=== PATIENT | female | born 1940 | race Caucasian/White ===

== ENCOUNTER 2020-10-18 03:12 | Inpatient (IN) ==
--- NOTE | 2020-10-18 04:52 | Emergency Department Note ---
HPI General Chief complaint: Extremity Problem,Nontraumatic Stated complaint: chest pain Time Seen by Provider: 10/18/20 03:27 Source: patient and EMS Mode of arrival: EMS History of Present Illness HPI Narrative: Narrative: Presents to room T2 for evaluation of cough, congestion, chills and right scapular pain. The patient is accompanied by her daughter. She reports that she went to bed and had no significant symptoms. She woke up prior to arrival with shaking chills cough and difficulty breathing. In addition the patient reports pain primarily along the right scapular region. This pain is made worse with any type of movement. There is no fever or night sweats. There is no sputum production. No chest pain. There is some nausea but no vomiting. No reported lower extremity swelling or calf pain. Related Data Home Medications Medication Instructions Recorded Confirmed amiodarone 200 mg PO DAILY 06/03/20 10/18/20 apixaban [Eliquis] 2.5 mg PO BID 06/03/20 10/18/20 hydralazine 50 mg PO BID 06/03/20 10/18/20 metoclopramide HCl [Reglan] 5 mg PO TID 06/03/20 06/08/20 metoclopramide HCl [Reglan] 5 mg PO TID 06/03/20 06/08/20 sitagliptin-metformin [Janumet XR] 1,000 tab PO HS 06/03/20 10/18/20 telmisartan [Micardis] 20 mg PO QDAY 06/03/20 10/18/20 Advair Diskus 250 device INHALATION BID 10/18/20 10/18/20 azelastine 10/18/20 clopidogrel [Plavix] 75 mg PO DAILY 10/18/20 10/18/20 pantoprazole [Protonix] 20 mg PO DAILY 10/18/20 10/18/20 Previous Rx's Medication Instructions Recorded sulfamethoxazole-trimethoprim 1 tab PO BID #20 tab 06/03/20 [Bactrim DS] sulfamethoxazole-trimethoprim 1 tab PO Q12H #20 tab 06/04/20 [Bactrim DS] Allergies Allergy/AdvReac Type Severity Reaction Status Date / Time Beclomethasone Allergy Verified 10/18/20 03:32 [From Vancenase] celecoxib [From Celebrex] Allergy Verified 10/18/20 03:32 diphenhydramine Allergy Verified 10/18/20 03:32 [From Benadryl] lidocaine Allergy Verified 10/18/20 03:32 lisinopril Allergy Verified 10/18/20 03:32 simvastatin [From Zocor] Allergy Verified 10/18/20 03:32 acetaminophen [From Percocet] AdvReac Verified 10/18/20 03:32 citalopram AdvReac Verified 10/18/20 03:32 codeine AdvReac Verified 10/18/20 03:32 hydrocortisone AdvReac Verified 10/18/20 03:32 meperidine [From Demerol] AdvReac Verified 10/18/20 03:32 oxycodone [From Percocet] AdvReac Verified 10/18/20 03:32 propoxyphene AdvReac Verified 10/18/20 03:32 [From Darvocet-N] tavist d Allergy Uncoded 06/03/20 09:29 Review of Systems ROS ROS Narrative: Narrative: All systems ED: reviewed and negative except as stated. [facility] Narrative Patient History Narrative: Narrative: Medical/Surgical/Family History All Active Problems (Updated 10/18/20 @ 06:48 by Roc Watson MD) Cellulitis of hand, left (Acute) Abscess of hand, left (Acute) Weakness generalized (Acute) Hyponatremia (Acute) Tremor (Acute) Pneumonia (Acute) Acute UTI (Acute) Suprapubic catheter (Acute) Chronic pain (Acute) Type 2 diabetes mellitus (Acute) Atrial fibrillation (Acute) Hypertension (Acute) Cellulitis (Acute) Medical History (Updated 10/18/20 @ 06:48 by Roc Watson MD) History of sepsis Social History Smoking Status: Never smoker Alcohol Intake Frequency: does not drink Substance Use: does not use Exam Narrative Narrative: Narrative: General General appearance: Present alert and in no apparent distress Head Head: Present atraumatic, normocephalic and normal inspection Eye Eye: Present normal appearance and EOMI; Absent conjunctival injection ENT ENT: Present normal exam and mucous membranes moist Neck Neck: Present normal inspection and trachea midline Respiratory Respiratory: Present normal lung sounds bilaterally; Absent respiratory distress Cardiovascular Cardiovascular: Present regular rate, normal rhythm and normal heart sounds Adbominal Abdominal: Present soft; Absent distention, tenderness, guarding and rebound Extremities Extremities: Present normal inspection; Absent tenderness Back Back: Present normal inspection, tenderness (There is tenderness palpation primarily along the paraspinal musculature of the medial border of the right scapula.), muscle spasm and paraspinal tenderness Neurological Neurological: Present alert, oriented X3 and CN II-XII intact; Absent motor sensory deficit Psychiatric Psychiatric: Present normal affect and normal mood Skin Skin: Present warm (WNL) and dry; Absent rash Course Vital Signs Vital signs: Vital Signs Temperature 99.7 F H 10/18/20 03:13 Pulse Rate 65 10/18/20 03:13 Respiratory Rate 25 H 10/18/20 03:13 Blood Pressure 159/54 10/18/20 03:13 Pulse Oximetry (%) 95 10/18/20 03:13 Temperature 99.7 F H 10/18/20 03:13 Pulse Rate 58 L 10/18/20 06:31 Respiratory Rate 25 H 10/18/20 06:31 Blood Pressure 143/50 10/18/20 06:31 Pulse Oximetry (%) 96 10/18/20 06:31 [facility] MDM Narrative Medical decision making narrative: Narrative: Patient presents for evaluation of cough congestion and chills. The patient's chest x-ray does show patchy infiltrates. This may represent pneumonia versus atelectasis. The patient has had some brief episodes of hypoxia while in the emergency department and I tend to lean more towards a pneumonia diagnosis clinically. The patient also has an indwelling suprapubic catheter. The urinalysis is consistent with UTI. The patient's sodium is 122 and this represents a progression of her hyponatremia. The patient's daughter does report that the patient has had previous diagnostic studies to evaluate for SIADH in [place] but does not have further details regarding this. The patient had episode of shaking while in the emergency department. She was awake during this time and I do not believe this represents seizure or seizure-like activity but rather more likely chills. The patient was treated with Tylenol and the symptoms did significantly improve. The patient has been treated with IV antibiotics after blood cultures. I also initiated normal saline and attempt to correct her hyponatremia. The patient will benefit from admission. The hospitalist has been paged. Lab Data Lab results reviewed: Yes I reviewed the patient's lab results. Result diagrams: 10/18/20 04:27 10/18/20 04:27 Labs: Lab Results 10/18/20 10/18/20 10/18/20 Range/Units 04:27 04:27 04:27 WBC 6.5 (4.5-11.0) K/mcL RBC 3.85 L (4.00-5.20) M/mcL Hgb 10.6 L (12.0-15.0) g/dL Hct 31.5 L (36.0-48.0) % MCV 81.8 (80.0-100.0) fL MCH 27.5 (26.0-34.0) pg MCHC 33.7 (31.0-36.0) g/dL RDW 15.1 H (11.5-14.5) % Plt Count 268 (140-440) K/mcL MPV 8.9 (7.4-10.4) fL Neut % (Auto) 90.7 H (38.0-78.0) % Lymph % (Auto) 4.5 L (15.0-49.0) % [place] % (Auto) 4.0 (1.0-12.0) % Eos % (Auto) 0.3 (0.0-7.0) % Baso % (Auto) 0.5 (0.0-2.0) % Lymph # (Auto) 0.29 L (1.50-4.80) K/mcL [place] # (Auto) 0.26 (0.10-0.90) K/mcL Eos # (Auto) 0.02 (0.00-0.70) K/mcL Baso # (Auto) 0.03 (0.00-0.20) K/mcL Absolute Neutrophils 5.85 (1.80-8.00) K/mcL VBG Lactic Acid 1.1 (0.5-2.0) mmol/L Sodium 122 L (133-145) mmol/L Potassium 3.8 (3.3-5.1) mmol/L Chloride 92 L (96-108) mmol/L Carbon Dioxide 21 L (22-30) mmol/L Anion Gap 9.0 (8.0-16.0) BUN 8 (8-23) mg/dL Creatinine 0.7 (0.6-1.1) mg/dL GFR Calculation 81 Glucose 208 H (70-105) mg/dL Calcium 8.6 (8.6-10.4) mg/dL Total Bilirubin 0.6 (0.1-1.0) mg/dL AST 20 (<32) U/L ALT 17 (<40) U/L Alkaline Phosphatase 66 (39-117) U/L Troponin T (<0.03) ng/mL Total Protein 6.1 (5.9-8.4) gm/dL Albumin 3.7 (3.2-5.2) gm/dL Globulin 2.4 (2.2-3.7) gm/dL Albumin/Globulin Ratio 1.5 (1.0-2.3) Lipase 31 (7-60) U/L Urine Color Urine Appearance (Clear) Urine pH (5.0-9.0) Ur Specific [place] (1.000-1.035) Urine Protein (Negative) mg/dL Urine Glucose (UA) (Negative) mg/dL Urine Ketones (Negative) mg/dL Urine Occult Blood (Negative) marisel/mcL Urine Nitrate (Negative) Urine Bilirubin (Negative) mg/dL Urine Urobilinogen mg/dL Ur Leukocyte Esterase (Negative) /ug Urine RBC (0-3) /hpf Urine WBC (0-4) /hpf Ur Squamous Epith Cells (0-4) /hpf Triple Phos Crystals (None) /hpf Amorphous Crystals (None) /hpf Urine Bacteria (0) /hpf Urine Mucus (None) /hpf Ur Culture Indicated? 10/18/20 10/18/20 Range/Units 04:27 05:30 WBC (4.5-11.0) K/mcL RBC (4.00-5.20) M/mcL Hgb (12.0-15.0) g/dL Hct (36.0-48.0) % MCV (80.0-100.0) fL MCH (26.0-34.0) pg MCHC (31.0-36.0) g/dL RDW (11.5-14.5) % Plt Count (140-440) K/mcL MPV (7.4-10.4) fL Neut % (Auto) (38.0-78.0) % Lymph % (Auto) (15.0-49.0) % [place] % (Auto) (1.0-12.0) % Eos % (Auto) (0.0-7.0) % Baso % (Auto) (0.0-2.0) % Lymph # (Auto) (1.50-4.80) K/mcL [place] # (Auto) (0.10-0.90) K/mcL Eos # (Auto) (0.00-0.70) K/mcL Baso # (Auto) (0.00-0.20) K/mcL Absolute Neutrophils (1.80-8.00) K/mcL VBG Lactic Acid (0.5-2.0) mmol/L Sodium (133-145) mmol/L Potassium (3.3-5.1) mmol/L Chloride (96-108) mmol/L Carbon Dioxide (22-30) mmol/L Anion Gap (8.0-16.0) BUN (8-23) mg/dL Creatinine (0.6-1.1) mg/dL GFR Calculation Glucose (70-105) mg/dL Calcium (8.6-10.4) mg/dL Total Bilirubin (0.1-1.0) mg/dL AST (<32) U/L ALT (<40) U/L Alkaline Phosphatase (39-117) U/L Troponin T < 0.01 (<0.03) ng/mL Total Protein (5.9-8.4) gm/dL Albumin (3.2-5.2) gm/dL Globulin (2.2-3.7) gm/dL Albumin/Globulin Ratio (1.0-2.3) Lipase (7-60) U/L Urine Color Yellow Urine Appearance Cloudy A (Clear) Urine pH 9.0 (5.0-9.0) Ur Specific [place] 1.013 (1.000-1.035) Urine Protein 30 A (Negative) mg/dL Urine Glucose (UA) >=500 A (Negative) mg/dL Urine Ketones 20 A (Negative) mg/dL Urine Occult Blood Trace A (Negative) marisel/mcL Urine Nitrate Pos A (Negative) Urine Bilirubin Negative (Negative) mg/dL Urine Urobilinogen Negative mg/dL Ur Leukocyte Esterase 250 A (Negative) /ug Urine RBC 5 H (0-3) /hpf Urine WBC 31 H (0-4) /hpf Ur Squamous Epith Cells 1 (0-4) /hpf Triple Phos Crystals Few A (None) /hpf Amorphous Crystals Few A (None) /hpf Urine Bacteria Few A (0) /hpf Urine Mucus Few A (None) /hpf Ur Culture Indicated? yes Radiology Data Radiology results reviewed: Yes I reviewed the patient's radiology results. EKG Data EKG #1: EKG attestation: Yes I reviewed and interpreted this EKG. and Yes There are no EKG findings of acute coronary syndrome EKG results narrative: Normal sinus rhythm with a rate of 57, normal ST, no ectopy, normal QRS Rhythm Strip Data Rhythm Strip Rate: 60 Interpretation: Normal sinus rhythm Pulse Oximetry Data Pulse Ox %: 95 Interpretation: Room air, normal Discharge Plan Patient/Caregiver Discharge Instructions Pt seen by DYE AND CHEMICAL COORDINATOR/PA only: No Clinical Impression: Hyponatremia, Tremor, Pneumonia, Acute UTI Patient Disposition: Xfer As Inpt ([facility]) Condition: Undetermined Follow up with: No,PCP [Primary Care Provider] - Prescriptions: No Action telmisartan [Micardis] 20 mg Tablet 20 mg PO QDAY RF: 0 Janumet XR 100-1,000 mg Tablet, Er Multiphase 24 Hr 1,000 tab PO HS RF: 0 Eliquis 2.5 mg Tablet 2.5 mg PO BID RF: 0 amiodarone tablet 200 mg PO DAILY RF: 0 metoclopramide HCl [Reglan] 5 mg Tablet 5 mg PO TID RF: 0 metoclopramide HCl [Reglan] 5 mg Tablet 5 mg PO TID RF: 0 hydralazine 50 mg Tablet 50 mg PO BID RF: 0 sulfamethoxazole-trimethoprim [Bactrim DS] 800-160 mg tablet 1 tab PO BID Qty: 20 RF: 0 sulfamethoxazole-trimethoprim [Bactrim DS] 800-160 mg tablet 1 tab PO Q12H Qty: 20 RF: 0 Advair Diskus 250 device inhalation BID RF: 0 clopidogrel [Plavix] 75 mg Tablet 75 mg PO DAILY RF: 0 pantoprazole [Protonix] 20 mg Tablet,Delayed Release (Dr/Ec) 20 mg PO DAILY RF: 0 azelastine RF: 0
[2020-10-18] MEDS ORDERED: ACETAMINOPHEN 325 MG TABLET PO ONE (05:18)
[2020-10-18 05:19] LABS: Basophils # (Auto) 0.03 K/mcL (0.00-0.20); Basophils % (Auto) 0.5 % (0.0-2.0); Eosinophils # (Auto) 0.02 K/mcL (0.00-0.70); Eosinophils % (Auto) 0.3 % (0.0-7.0); Hematocrit 31.5 % (36.0-48.0); Hemoglobin 10.6 g/dL (12.0-15.0); Lymphocytes # (Auto) 0.29 K/mcL (1.50-4.80); Lymphocytes % (Auto) 4.5 % (15.0-49.0); Mean Cell Volume 81.8 fL (80.0-100.0); Mean Corpuscular HGB Conc 33.7 g/dL (31.0-36.0); Mean Platelet Volume 8.9 fL (7.4-10.4); Monocytes # (Auto) 0.26 K/mcL (0.10-0.90); Neutrophils % (Auto) 90.7 % (38.0-78.0); Platelet Count 268 K/mcL (140-440); RBC 3.85 M/mcL (4.00-5.20); Red Cell Distribution Width 15.1 % (11.5-14.5); WBC 6.5 K/mcL (4.5-11.0)
[2020-10-18 05:40] LABS: ALT/SGPT 17 U/L (<40); AST/SGOT 20 U/L (<32); Albumin 3.7 gm/dL (3.2-5.2); Albumin/Globulin Ratio 1.5 (1.0-2.3); Alkaline Phosphatase 66 U/L (39-117); Bilirubin,Total 0.6 mg/dL (0.1-1.0); Blood Urea Nitrogen 8 mg/dL (8-23); Calcium 8.6 mg/dL (8.6-10.4); Carbon Dioxide 21 mmol/L (22-30); Chloride 92 mmol/L (96-108); Globulin 2.4 gm/dL (2.2-3.7); Glomerular Filtration Rate 81; Glucose 208 mg/dL (70-105)
[2020-10-18] MEDS ORDERED: cefTRIAXone 1 GM VIAL IV ONE (05:52)
--- NOTE | 2020-10-18 05:57 | XRay Report ---
CLINICAL INFORMATION: cough, chills COMPARISON: 08/22/2010 FINDINGS: The heart size, mediastinum and pulmonary vessels are normal. There is mild patchy airspace disease in both mid and lower lungs representing either atelectasis or developing infiltrate. No effusions IMPRESSION: Mild patchy airspace disease in both mid and lower lungs - more likely atelectasis than developing infiltrate. Consider two-view follow-up chest x-ray in one to two days Interpreted and Authenticated by: Surya Avila 10/18/20
[2020-10-18] MEDS ORDERED: 0.9 % SODIUM CHLORIDE 1,000 ML IV SCH (06:00)
[2020-10-18 06:22] LABS: Appearance,Urine CLOUDY (Clear); Bacteria,Urine FEW /hpf (0); Bilirubin,Urine Negative (Negative); Color,Urine YELLOW; Culture Indicated,Urine yes; Glucose,Urine (UA) >=500 mg/dL (Negative); Ketones,Urine 20 mg/dL (Negative); Leukocyte Esterase,Urine 250 /ug (Negative); Mucus,Urine FEW /hpf; Nitrate,Urine POS (Negative); Protein,Urine 30 mg/dL (Negative); Specific Gravity,Urine 1.013 (1.000-1.035); Triple Phosphate Crystal,Urine FEW /hpf; Urine Amorphous Crystals FEW /hpf; Urine Blood Trace ery/mcL (Negative); Urine RBC 5 /hpf (0-3); Urine Squamous Epithelial Cell 1 /hpf (0-4); Urine WBC 31 /hpf (0-4); Urobilinogen,Urine Negative
--- NOTE | 2020-10-18 13:55 | Internal Med History&Physical ---
HPI History of Present Illness Patient information: Note initiated : 10/18/20 at 1:43 pm Service Date, if different from initiated Date: [] Patient: Eunice Brar a 80 y/o F admitted on for Chest Pain . Chief Complaint: [] History of present illness: Ms. Brar is a 80 year old F Patient was in her normal state of health until last night when she had increased coughing. She has chronic cough and sinus drainage and this cough was worse than usual. Almost made her vomit. She coughed up clear sputum. She had some abdominal muscle spasms which she gets on occasion. Reports some scapular chest pain but denied that to me although she does say that when she takes deep breaths she does get some some discomfort. Initial reading in the ER showed a low oxygen saturation although she is on room air currently when I examined her. She has bradycardia which is normal for her. 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 Chest x-ray read as mild patchy airspace and mid lower lungs more likely atelectasis. She is from out of town but does appear to undergo a dental procedure by her son law a local dentist Review of Systems: Pertinent positives as above. Denies headache//nausea/vomiting/diarrhea. Otherwise see above. PFSH PFSH All Active Problems (Updated 10/18/20 @ 06:48 by Roc Watson MD) Cellulitis of hand, left (Acute) Abscess of hand, left (Acute) Weakness generalized (Acute) Hyponatremia (Acute) Tremor (Acute) Pneumonia (Acute) Acute UTI (Acute) Suprapubic catheter (Acute) Chronic pain (Acute) Type 2 diabetes mellitus (Acute) Atrial fibrillation (Acute) Hypertension (Acute) Cellulitis (Acute) Medical History (Updated 10/18/20 @ 06:48 by Roc Watson MD) History of sepsis Social History alcohol intake frequency: does not drink substance use type: does not use MEDS/ALLERGIES Home Medications and Allergies Home Medications Medication Instructions Recorded Confirmed Type amiodarone 200 mg PO DAILY 06/03/20 10/18/20 History apixaban [Eliquis] 2.5 mg PO BID 06/03/20 10/18/20 History hydralazine 50 mg PO BID 06/03/20 10/18/20 History metoclopramide HCl [Reglan] 5 mg PO TID 06/03/20 06/08/20 History metoclopramide HCl [Reglan] 5 mg PO TID 06/03/20 06/08/20 History sitagliptin-metformin [Janumet XR] 1,000 tab PO HS 06/03/20 10/18/20 History sulfamethoxazole-trimethoprim 1 tab PO BID #20 tab 06/03/20 Rx [Bactrim DS] telmisartan [Micardis] 20 mg PO QDAY 06/03/20 10/18/20 History sulfamethoxazole-trimethoprim 1 tab PO Q12H #20 tab 06/04/20 06/08/20 Rx [Bactrim DS] Advair Diskus 250 device INHALATION BID 10/18/20 10/18/20 History azelastine 10/18/20 History clopidogrel [Plavix] 75 mg PO DAILY 10/18/20 10/18/20 History pantoprazole [Protonix] 20 mg PO DAILY 10/18/20 10/18/20 History Allergies Allergy/AdvReac Type Severity Reaction Status Date / Time Beclomethasone Allergy Verified 10/18/20 03:32 [From Vancenase] celecoxib [From Celebrex] Allergy Verified 10/18/20 03:32 diphenhydramine Allergy Verified 10/18/20 03:32 [From Benadryl] lidocaine Allergy Verified 10/18/20 03:32 lisinopril Allergy Verified 10/18/20 03:32 simvastatin [From Zocor] Allergy Verified 10/18/20 03:32 acetaminophen [From Percocet] AdvReac Verified 10/18/20 03:32 citalopram AdvReac Verified 10/18/20 03:32 codeine AdvReac Verified 10/18/20 03:32 hydrocortisone AdvReac Verified 10/18/20 03:32 meperidine [From Demerol] AdvReac Verified 10/18/20 03:32 oxycodone [From Percocet] AdvReac Verified 10/18/20 03:32 propoxyphene AdvReac Verified 10/18/20 03:32 [From Darvocet-N] tavist d Allergy Uncoded 06/03/20 09:29 EXAM Constitutional Vitals: Temp Pulse Resp BP Pulse Ox 99.7 F H 52 L 22 137/54 97 10/18/20 03:13 10/18/20 13:24 10/18/20 13:24 10/18/20 13:24 10/18/20 13:24 Exam: General: Alert, Awake, No acute Distress Eyes/N/T: EOMI, PERRL, Head/Neck: neck supple, normocephalic atraumatic CV: sinus denise, No murmurs, normal s1/s2 Pulm: mild bibase rales, no wheezing/rhonchi/rales Abd: soft, nontender, +BS x4, suprapubic cath Ext: no clubbing/cyanosis/edema Neuro: Alert, no focal deficits, moves all extremities, CN 2-12 grossly intact, symmetrical strength b/l upper/lower, sensations intact b/l upper/lower Skin: warm/dry DATA Data Completed and Pending Labs: Labs from last 24 hours 10/18/20 10/18/20 10/18/20 05:30 04:27 04:27 WBC RBC Hgb Hct MCV MCH MCHC RDW Plt Count MPV Neut % (Auto) Lymph % (Auto) Lane % (Auto) Eos % (Auto) Baso % (Auto) Lymph # (Auto) Lane # (Auto) Eos # (Auto) Baso # (Auto) Absolute Neutrophils VBG Lactic Acid 1.1 Sodium Potassium Chloride Carbon Dioxide Anion Gap BUN Creatinine GFR Calculation Glucose Calcium Total Bilirubin AST ALT Alkaline Phosphatase Troponin T < 0.01 Total Protein Albumin Globulin Albumin/Globulin Ratio Lipase Urine Color Yellow Urine Appearance Cloudy A Urine pH 9.0 Ur Specific [place] 1.013 Urine Protein 30 A Urine Glucose (UA) >=500 A Urine Ketones 20 A Urine Occult Blood Trace A Urine Nitrate Pos A Urine Bilirubin Negative Urine Urobilinogen Negative Ur Leukocyte Esterase 250 A Urine RBC 5 H Urine WBC 31 H Ur Squamous Epith Cells 1 Triple Phos Crystals Few A Amorphous Crystals Few A Urine Bacteria Few A Urine Mucus Few A Ur Culture Indicated? yes 10/18/20 10/18/20 04:27 04:27 WBC 6.5 RBC 3.85 L Hgb 10.6 L Hct 31.5 L MCV 81.8 MCH 27.5 MCHC 33.7 RDW 15.1 H Plt Count 268 MPV 8.9 Neut % (Auto) 90.7 H Lymph % (Auto) 4.[address] % (Auto) 4.0 Eos % (Auto) 0.3 Baso % (Auto) 0.5 Lymph # (Auto) 0.[address] # (Auto) 0.26 Eos # (Auto) 0.02 Baso # (Auto) 0.03 Absolute Neutrophils 5.85 VBG Lactic Acid Sodium 122 L Potassium 3.8 Chloride 92 L Carbon Dioxide 21 L Anion Gap 9.0 BUN 8 Creatinine 0.7 GFR Calculation 81 Glucose 208 H Calcium 8.6 Total Bilirubin 0.6 AST 20 ALT 17 Alkaline Phosphatase 66 Troponin T Total Protein 6.1 Albumin 3.7 Globulin 2.4 Albumin/Globulin Ratio 1.5 Lipase 31 Urine Color Urine Appearance Urine pH Ur Specific [place] Urine Protein Urine Glucose (UA) Urine Ketones Urine Occult Blood Urine Nitrate Urine Bilirubin Urine Urobilinogen Ur Leukocyte Esterase Urine RBC Urine WBC Ur Squamous Epith Cells Triple Phos Crystals Amorphous Crystals Urine Bacteria Urine Mucus Ur Culture Indicated? 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 fib: On Eliquis /amiodarone *GERD: *HTN: *Anemia, chronic: * P: -Rocephin pending UC -Replace suprapubic catheter -IS/acapella, check procalcitonin -Salt tabs and fluid restrict, urine studies -Follow-up chest x-ray two-view in the morning -cont amio/eliquis/plavix -cont arb/hydralazine -SSI/metformin -prn nebs - -pt/ot -ppx: eliquis/home ppi full code Time Spent With Patient Time: Total time spent is greater than 50% in coordination of care (as documented) at patient's floor/unit and/or counseling patient:
[2020-10-18 15:20] LABS: Osmolality,Urine 610 mOSM/kg (80-1000)
[2020-10-18] MEDS ORDERED: MAGNESIUM SULFATE 2 GM/50 ML BAG IV PRN (15:48)
[2020-10-18] MEDS ORDERED: POTASSIUM CHLORIDE 40 MEQ in DEXTROSE 5% IN WATER 500 ML IV PRN (15:48)
[2020-10-18] MEDS ORDERED: DEXTROSE 50% 50 ML VIAL IV PRN (15:48)
[2020-10-18] MEDS ORDERED: IPRATROPIUM/ALBUTEROL 3 ML AMPUL.NEB NEB PRN (15:48)
[2020-10-18] MEDS ORDERED: POTASSIUM CHLORIDE 20 MEQ TABLET PO PRN ×2 (15:48)
[2020-10-18] MEDS ORDERED: SENNOSIDES 1 TABLET PO PRN (15:48)
[2020-10-18] MEDS ORDERED: DEXTROSE 31 GM ORAL.SUSP PO PRN (15:48)
[2020-10-18] MEDS ORDERED: ONDANSETRON 4 MG/2 ML VIAL IV PRN (15:48)
[2020-10-18] MEDS ORDERED: POLYETHYLENE GLYCOL 3350 17 GM PACKET PO PRN (15:48)
[2020-10-18] MEDS ORDERED: ACETAMINOPHEN 325 MG TABLET PO PRN (15:48)
[2020-10-18 15:53] LABS: C-Reactive Protein 2.6 mg/dL (0.03-0.80)
[2020-10-18 15:54] LABS: Uric Acid 2.6 mg/dL (2.5-8.0)
[2020-10-18 16:12] LABS: Sodium, Urine Random 82 mmol/L
[2020-10-18] MEDS: 0.9 % SODIUM CHLORIDE 10 ML SYRINGE IV SCH ×2 (16:30→21:40)
[2020-10-18] MEDS ORDERED: SODIUM CHLORIDE 1 GM TABLET PO ONE (16:45)
[2020-10-18] MEDS: IPRATROPIUM/ALBUTEROL 3 ML AMPUL.NEB NEB SCH ×2 (17:04→23:07)
[2020-10-18] MEDS: INSULIN LISPRO 1 UNIT/0.01 ML UNIT SQ SCH ×2 (18:15→21:39)
[2020-10-18] MEDS ORDERED: SODIUM CHLORIDE 1 GM TABLET PO SCH (21:00)
[2020-10-18] MEDS ORDERED: [UNRECOGNIZED DRUG - OTHER] PO SCH (21:00)
[2020-10-18] MEDS ORDERED: SITAGLIPTIN METFORMIN PO SCH (21:00)
[2020-10-18] MEDS: FLUTICASONE/SALMETEROL 250/50 INHALER #14 INH SCH (21:13)
[2020-10-18] MEDS: APIXABAN 5 MG TABLET PO SCH (21:38)
[2020-10-18] MEDS: DOCUSATE SODIUM 100 MG CAPSULE PO SCH (21:38)
[2020-10-18] MEDS: sitaGLIPtin 100 MG TABLET PO SCH (21:39)
[2020-10-18] MEDS: metFORMIN 500 MG TAB.XL.24H PO SCH (21:39)
[2020-10-18] MEDS: hydrALAZINE 25 MG TABLET PO SCH (21:39)
[2020-10-19] MEDS: 0.9 % SODIUM CHLORIDE 10 ML SYRINGE IV SCH ×3 (05:00→20:46)
--- NOTE | 2020-10-19 07:46 | Internal Med Progress Note ---
SUBJECTIVE Subjective Patient information: Note initiated : 10/19/20 at 7:42 am Service Date, if different from initiated Date: [] Patient: Eunice Brar a 80 y/o F admitted on 10/18/20 for Chest Pain . Chief Complaint: [] Interval history: History of present illness: Ms. Brar is a 80 year old F Patient was in her normal state of health until last night when she had increased coughing. She has chronic cough and sinus drainage and this cough was worse than usual. Almost made her vomit. She coughed up clear sputum. She had some abdominal muscle spasms which she gets on occasion. Reports some scapular chest pain but denied that to me although she does say that when she takes deep breaths she does get some some discomfort. Initial reading in the ER showed a low oxygen saturation although she is on room air currently when I examined her. She has bradycardia which is normal for her. 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 Chest x-ray read as mild patchy airspace and mid lower lungs more likely atelectasis. [place] is from [place] but does appear to undergo a dental procedure by her son law a local dentist 10/19 Doing better today. No overnight events or new complaints. Review of Systems: Pertinent positives as above. Denies headache/fev er/chills/nausea/vomiting/diarrhea. Otherwise see above. Constitutional Vitals: Vital Signs Temp Pulse Resp BP Pulse Ox 97.7 F 54 L 16 131/50 92 10/19/20 03:00 10/19/20 03:00 10/19/20 03:00 10/19/20 03:00 10/19/20 03:00 Period Temp Pulse Resp BP Sys/Calvo Pulse Ox Last 24 Hr 97.7 F-99.7 F 45-60 16-32 124-157/44-84 92-99 Intake and Output 10/18/20 10/19/20 10/19/20 21:59 05:59 13:59 Intake Total 1240 100 Output Total 300 400 Balance 940 -300 Weight 71.894 kg Intake & Output: Intake & Output 10/18/20 10/19/20 10/19/20 21:59 05:59 13:59 Intake Total 1240 100 Output Total 300 400 Balance 940 -300 Weight 71.894 kg Intake: Nourishment/Supplement quantity 240 (ml) IV 1000 Sodium Chloride 0.9% 1,000 ml @ 1000 100 mls/hr IV .Q10H [facility] Rx#: [id number] Oral 100 Output: Urine Catheter Amount 300 400 Other: Meal Dinner Percent of Meal Consumed 100% Nourishment/Supplement name glucerna Urine Appearance Cloudy Cloudy Suprapubic Cloudy Urine Color Bright Yellow Bright Yellow Suprapubic Pale Exam: General: Alert, Awake, No acute Distress Eyes/N/T: EOMI, Head/Neck: neck supple, CV: sinus denise, No murmurs, Pulm: mild diminished at bases, no wheezing/rhonchi/rales Abd: soft, nontender, +BS x4, suprapubic cath Ext: no clubbing/cyanosis/edema Neuro: Alert, no focal deficits, moves all extremities, Skin: warm/dry OBJ DATA Labs CBC & Chem 7: 10/19/20 06:09 10/19/20 06:09 Labs: Abnormal Lab Results 10/18/20 10/18/20 10/18/20 14:11 14:11 05:30 RBC Hgb Hct RDW Neut % (Auto) Lymph % (Auto) Lymph # (Auto) Sodium Chloride Carbon Dioxide Glucose Osmolality 274 L C-Reactive Protein 2.60 H Procalcitonin 0.13 H Urine Appearance Cloudy A Urine Protein 30 A Urine Glucose (UA) >=500 A Urine Ketones 20 A Urine Occult Blood Trace A Urine Nitrate Pos A Ur Leukocyte Esterase 250 A Urine RBC 5 H Urine WBC 31 H Triple Phos Crystals Few A Amorphous Crystals Few A Urine Bacteria Few A Urine Mucus Few A 10/18/20 10/18/20 04:27 04:27 RBC 3.85 L Hgb 10.6 L Hct 31.5 L RDW 15.1 H Neut % (Auto) 90.7 H Lymph % (Auto) 4.5 L Lymph # (Auto) 0.29 L Sodium 122 L Chloride 92 L Carbon Dioxide 21 L Glucose 208 H Osmolality C-Reactive Protein Procalcitonin Urine Appearance Urine Protein Urine Glucose (UA) Urine Ketones Urine Occult Blood Urine Nitrate Ur Leukocyte Esterase Urine RBC Urine WBC Triple Phos Crystals Amorphous Crystals Urine Bacteria Urine Mucus Meds: Medications Acetaminophen (Acetaminophen 325 Mg Tablet) 650 mg PO Q6HP PRN PRN Reason: PAIN/FEVER > 101 Albuterol/Ipratropium (Ipratropium/Albuterol 3 Ml Ampul.Neb) 3 ml NEB Q4HP PRN PRN Reason: Shortness Of Breath Albuterol/Ipratropium (Ipratropium/Albuterol 3 Ml Ampul.Neb) 3 ml NEB Q8H [facility] Last Admin: 10/18/20 23:07 Dose: 3 ml Documented by: Amiodarone HCl (Amiodarone Hcl 200 Mg Tablet) [facility] Apixaban (Apixaban 5 Mg Tablet) 2.5 mg PO BID [facility] Last Admin: 10/18/20 21:38 Dose: 2.5 mg Documented by: Clopidogrel Bisulfate (Clopidogrel 75 Mg Tablet) 75 mg PO DAILY [facility] Dextrose (Dextrose 50% 50 Ml Vial) 0 ml IV UD PRN PRN Reason: Hypoglycemia Diagnostic Test (Pha) (Accu-Chek 1 Each Strip) 1 each FS [facility] Last Admin: 10/18/20 21:13 Dose: 1 each Documented by: Docusate Sodium (Docusate Sodium 100 Mg Capsule) 100 mg PO BID [facility] Last Admin: 10/18/20 21:38 Dose: 100 mg Documented by: Glucose (Dextrose 31 Gm Oral.Susp) 15 gm PO PRN PRN PRN Reason: Hypoglycemia Hydralazine HCl (Hydralazine 25 Mg Tablet) 50 mg PO BID [facility] Last Admin: 10/18/20 21:39 Dose: 50 mg Documented by: Potassium Chloride 40 meq/ (Dextrose) 520 mls @ 130 mls/hr IV UD PRN PRN Reason: Potassium < 3 Magnesium Sulfate (Magnesium Sulfate) 2 gm in 50 mls @ 50 mls/hr IV UD PRN PRN Reason: Magnesium </= 1.6 Ceftriaxone Sodium 2 gm/ (Dextrose) 50 mls @ 100 mls/hr IV Q24H [facility]; Protocol Insulin Human Lispro (Insulin Lispro 1 Unit/0.01 Ml Unit) 0 unit SQ [facility]; Protocol Last Admin: 10/18/20 21:39 Dose: 6 units Documented by: Losartan Potassium (Losartan 50 Mg Tablet) 50 mg PO DAILY [facility] Metformin HCl (Metformin 500 Mg Tab.Xl.24h) 1,000 mg PO HS [facility] Last Admin: 10/18/20 21:39 Dose: 1,000 mg Documented by: Ondansetron HCl (Ondansetron 4 Mg/2 Ml Vial) 4 mg IV Q4HP PRN PRN Reason: Nausea And Vomiting Pantoprazole Sodium (Pantoprazole 40 Mg Tablet) 40 mg PO QAMAC [facility] Polyethylene Glycol (Polyethylene Glycol 3350 17 Gm Packet) 17 gm PO DAILYP PRN PRN Reason: Constipation Potassium Chloride (Potassium Chloride 20 Meq Tablet) 40 meq PO UD PRN PRN Reason: Potssium is 3-3.5 Potassium Chloride (Potassium Chloride 20 Meq Tablet) 40 meq PO UD PRN PRN Reason: Potassium < 3 Fluticasone/Salmeterol (Fluticasone/Salmeterol 250/50 Inhaler #14) 1 puff INH BID [facility] Last Admin: 10/18/20 21:13 Dose: Not Given Documented by: Senna (Sennosides 1 Tablet) 2 tab PO DAILYP PRN PRN Reason: Constipation Sitagliptin Phosphate (Sitagliptin 100 Mg Tablet) 100 mg PO HS [facility] Last Admin: 10/18/20 21:39 Dose: 100 mg Documented by: Sodium Chloride (0.9 % Sodium Chloride 10 Ml Syringe) 10 ml IV Q8 [facility] Last Admin: 10/19/20 05:00 Dose: 10 ml Documented by: Sodium Chloride (Sodium Chloride 1 Gm Tablet) 1 gm PO TID [facility] Last Admin: 10/18/20 21:39 Dose: 1 gm Documented by: A/P Narrative A/P Narrative: A: *UTI: -does have suprapubic cath confounding UA, but with shaking chills will treat as infection *Atelectasis vs doubt PNA: -cough similar to chronic sinus drainage cough, good sats on room air, pct low *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 fib: On Eliquis /amiodarone *GERD: *HTN: *Anemia, chronic: *Recent multiple dental procedures over the last month P: -Rocephin pending UC -Replace suprapubic catheter -IS/acapella, -Salt tabs and fluid restrict, -cont amio/eliquis/plavix -cont arb/hydralazine -SSI/metformin -prn nebs, home IH's -pt/ot -ppx: eliquis/home ppi full code Time Spent With Patient Time: Total time spent is greater than 50% in coordination of care (as documented) at patient's floor/unit and/or counseling patient: QUALITY VTE Deep Vein Thrombosis/Pulmonary Embolism Present on Admission: No
--- NOTE | 2020-10-19 07:55 | XRay Report ---
CLINICAL INFORMATION: atelectasis vs pna COMPARISON: 10/18/2020 FINDINGS: Heart is mildly enlarged, but unchanged. Mediastinum and pulmonary vessels are normal. Small infiltrate or atelectasis has developed in the right lower lobe. Minor atelectasis left base as before. No effusion. IMPRESSION: Small vague infiltrate or atelectasis developing in the right lower lobe. Subsegmental atelectasis left base stable Interpreted and Authenticated by: Surya Avila 10/19/20
[2020-10-19 08:08] LABS: Basophils # (Auto) 0.03 K/mcL (0.00-0.20); Basophils % (Auto) 0.9 % (0.0-2.0); Eosinophils # (Auto) 0.06 K/mcL (0.00-0.70); Eosinophils % (Auto) 1.8 % (0.0-7.0); Hematocrit 31.2 % (36.0-48.0); Hemoglobin 10.3 g/dL (12.0-15.0); Lymphocytes # (Auto) 0.81 K/mcL (1.50-4.80); Lymphocytes % (Auto) 24.4 % (15.0-49.0); Mean Cell Volume 84.1 fL (80.0-100.0); Mean Platelet Volume 9.3 fL (7.4-10.4); Monocytes # (Auto) 0.32 K/mcL (0.10-0.90); Monocytes % (Auto) 9.6 % (1.0-12.0); Neutrophils % (Auto) 63.3 % (38.0-78.0); Platelet Count 233 K/mcL (140-440); RBC 3.71 M/mcL (4.00-5.20); Red Cell Distribution Width 15.6 % (11.5-14.5); WBC 3.3 K/mcL (4.5-11.0)
[2020-10-19 08:27] LABS: ALT/SGPT 16 U/L (<40); AST/SGOT 22 U/L (<32); Albumin 3.2 gm/dL (3.2-5.2); Albumin/Globulin Ratio 1.4 (1.0-2.3); Alkaline Phosphatase 56 U/L (39-117); Bilirubin,Direct < 0.2 mg/dL (0-0.3); Bilirubin,Total 0.2 mg/dL (0.1-1.0); Blood Urea Nitrogen 9 mg/dL (8-23); Calcium 8.4 mg/dL (8.6-10.4); Carbon Dioxide 22 mmol/L (22-30); Chloride 100 mmol/L (96-108); Globulin 2.3 gm/dL (2.2-3.7); Glomerular Filtration Rate 81; Glucose 127 mg/dL (70-105); Lactate Dehydrogenase 133 U/L (135-225); Phosphorous 3.5 mg/dL (2.5-4.5); Triglycerides 51 mg/dL (<150); Uric Acid 2.5 mg/dL (2.5-8.0)
[2020-10-19] MEDS: IPRATROPIUM/ALBUTEROL 3 ML AMPUL.NEB NEB SCH ×3 (08:38→21:22)
[2020-10-19] MEDS: INSULIN LISPRO 1 UNIT/0.01 ML UNIT SQ SCH ×4 (09:03→20:46)
[2020-10-19] MEDS: PANTOPRAZOLE 40 MG TABLET PO SCH (09:04)
[2020-10-19] MEDS: LOSARTAN 50 MG TABLET PO SCH (09:04)
[2020-10-19] MEDS: AMIODARONE HCL 200 MG TABLET PO SCH (09:04)
[2020-10-19] MEDS: APIXABAN 5 MG TABLET PO SCH ×2 (09:04→21:07)
[2020-10-19] MEDS: hydrALAZINE 25 MG TABLET PO SCH ×2 (09:05→21:07)
[2020-10-19] MEDS: DOCUSATE SODIUM 100 MG CAPSULE PO SCH ×2 (09:05→20:45)
[2020-10-19] MEDS: CLOPIDOGREL 75 MG TABLET PO SCH (09:05)
[2020-10-19] MEDS: FLUTICASONE/SALMETEROL 250/50 INHALER #14 INH SCH ×3 (09:05→21:30)
[2020-10-19] MEDS: cefTRIAXone 2 GM in DEXTROSE 5% IN WATER 50 ML IV SCH (09:06)
[2020-10-19] MEDS: SODIUM CHLORIDE 1 GM TABLET PO SCH ×2 (09:06→21:08)
--- NOTE | 2020-10-19 10:11 | Discharge Summary ---
Discharge Provider Provider Patient information: Note initiated : 10/19/20 at 10:08 am Service Date, if different from initiated Date: [] Patient: Eunice Brar a 80 y/o F admitted on 10/18/20 for Chest Pain . Chief Complaint: [] Date of admission: 10/18/20 15:24 Discharge date: 10/19/20 Consults: 10/18/20 Consult to Physician [CONS] Stat Comment: Consulting Provider: Yunier Jackson Reason For Exam: Physician to Consult Discharge Meds Discharge Medications Home Medications Eliquis 2.5 mg PO BID 06/03/20 [History Confirmed 10/18/20 Last Taken Unknown] Janumet XR 1,000 tab PO HS 06/03/20 [History Confirmed 10/18/20 Last Taken Unknown] amiodarone 200 mg PO DAILY 06/03/20 [History Confirmed 10/18/20 Last Taken Unknown] hydralazine 50 mg PO BID 06/03/20 [History Confirmed 10/18/20 Last Taken Unknown] telmisartan [Micardis] 20 mg PO QDAY 06/03/20 [History Confirmed 10/18/20 Last Taken Unknown] Advair Diskus 250 device INHALATION BID 10/18/20 [History Confirmed 10/18/20 Last Taken Unknown] azelastine 2 spray INTRANASAL BID 10/18/20 [History Confirmed 10/18/20 Last Taken Unknown] clopidogrel [Plavix] 75 mg PO DAILY 10/18/20 [History Confirmed 10/18/20 Last Taken Unknown] montelukast 10 mg PO QDAY 10/18/20 [History Confirmed 10/18/20 Last Taken Unk nown] pantoprazole [Protonix] 20 mg PO DAILY 10/18/20 [History Confirmed 10/18/20 Last Taken Unknown] nitrofurantoin monohyd/m-cryst [Macrobid] 100 mg PO BID #8 cap 10/19/20 [Rx Last Taken Unknown] COURSE Hospital Course Hospital course: Interval history: History of present illness: Ms. Brar is a 80 year old F Patient was in her normal state of health until last night when she had increased coughing. She has chronic cough and sinus drainage and this cough was worse than usual. Almost made her vomit. She coughed up clear sputum. She had some abdominal muscle spasms which she gets on occasion. Reports some scapular chest pain but denied that to me although she does say that when she takes deep breaths she does get some some discomfort. Initial reading in the ER showed a low oxygen saturation although she is on room air currently when I examined her. She has bradycardia which is normal for her. 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 Chest x-ray read as mild patchy airspace and mid lower lungs more likely atelectasis. She is from out of town but does appear to undergo a dental procedure by her son law a local dentist 10/19 Doing better today. No overnight events or new complaints. A: *UTI: -does have suprapubic cath confounding UA, but with shaking chills & malaise will treat as infection *Atelectasis vs doubt PNA: -cough similar to chronic sinus drainage cough, good sats on room air, pct lo w *Acute on chronic hyponatremia: 08/29 SIADH -improved *Chronic bradycardia: *Asthma: *DM: *A. fib: On Eliquis /amiodarone *GERD: *HTN: *Anemia, chronic: *Recent multiple dental procedures over the last month Discharge diagnosis: UTI atelectasis acute on chronic hyponatremia Secondary discharge diagnosis: Chronic bradycardia asthma diabetes A. fib GERD hypertension anemia Time Spent with Patient Time attestation: Total time spent providing and/or coordinating discharge services: Time spent: Greater than 30 minutes EXAM Constitutional Vitals: Temp Pulse Resp BP Pulse Ox 97.7 F 54 L 16 131/50 92 10/19/20 03:00 10/19/20 03:00 10/19/20 03:00 10/19/20 03:00 10/19/20 03:00 Discharge Data Data Completed and Pending Labs on day of discharge: Labs from last 24 hours 10/19/20 10/19/20 10/18/20 06:09 06:09 14:11 WBC 3.3 L RBC 3.71 L Hgb 10.3 L Hct 31.2 L MCV 84.1 MCH 27.8 MCHC 33.0 RDW 15.6 H Plt Count 233 MPV 9.3 Neut % (Auto) 63.3 Lymph % (Auto) 24.4 [place] % (Auto) 9.6 Eos % (Auto) 1.8 Baso % (Auto) 0.9 Lymph # (Auto) 0.81 L [place] # (Auto) 0.32 Eos # (Auto) 0.06 Baso # (Auto) 0.03 Absolute Neutrophils 2.10 Sodium 130 L Potassium 4.3 Chloride 100 Carbon Dioxide 22 Anion Gap 8.0 BUN 9 Creatinine 0.7 GFR Calculation 81 Glucose 127 H Osmolality Uric Acid 2.5 Calcium 8.4 L Phosphorus 3.5 Magnesium 1.8 Total Bilirubin 0.2 Direct Bilirubin < 0.2 GGT 14 AST 22 ALT 16 Alkaline Phosphatase 56 Lactate Dehydrogenase 133 L C-Reactive Protein Total Protein 5.5 L Albumin 3.2 Globulin 2.3 Albumin/Globulin Ratio 1.4 Triglycerides 51 Procalcitonin 0.13 H Urine Osmolality Ur Random Sodium 10/18/20 10/18/20 14:11 05:30 WBC RBC Hgb Hct MCV MCH MCHC RDW Plt Count MPV Neut % (Auto) Lymph % (Auto) [place] % (Auto) Eos % (Auto) Baso % (Auto) Lymph # (Auto) [place] # (Auto) Eos # (Auto) Baso # (Auto) Absolute Neutrophils Sodium Potassium Chloride Carbon Dioxide Anion Gap BUN Creatinine GFR Calculation Glucose Osmolality 274 L Uric Acid 2.6 Calcium Phosphorus Magnesium Total Bilirubin Direct Bilirubin GGT AST ALT Alkaline Phosphatase Lactate Dehydrogenase C-Reactive Protein 2.60 H Total Protein Albumin Globulin Albumin/Globulin Ratio Triglycerides Procalcitonin Urine Osmolality 610 Ur Random Sodium 82 Preliminary micro results at discharge 10/18/20 04:35 Blood Culture - Preliminary Blood 10/18/20 04:27 Blood Culture - Preliminary Blood Discharge Plan Patient/Caregiver Discharge Instructions Activity: increase activity as tolerated Activity Restrictions/Additional Instructions: You have an appointment at [facility] on FridayOctober 23 at 1:30. [facility] is located at [address] [place] [address]. You have been given other resources. We encourage you to reach out and use these resources. Follow-up with PCP in 3 to 7 days Prescriptions: New nitrofurantoin monohyd/m-cryst [Macrobid] 100 mg capsule 100 mg PO BID Qty: 8 RF: 0 Continued telmisartan [Micardis] 20 mg Tablet 20 mg PO QDAY RF: 0 Janumet XR 100-1,000 mg Tablet, Er Multiphase 24 Hr 1,000 tab PO HS RF: 0 Eliquis 2.5 mg Tablet 2.5 mg PO BID RF: 0 amiodarone tablet 200 mg PO DAILY RF: 0 hydralazine 50 mg Tablet 50 mg PO BID RF: 0 Advair Diskus 250 device inhalation BID RF: 0 clopidogrel [Plavix] 75 mg Tablet 75 mg PO DAILY RF: 0 pantoprazole [Protonix] 20 mg Tablet,Delayed Release (Dr/Ec) 20 mg PO DAILY RF: 0 azelastine aerosol 2 spray intranasal BID RF: 0 montelukast 10 mg Tablet 10 mg PO QDAY RF: 0 Follow Up Plan Patient Disposition: Xfer SNF Prognosis: Undetermined Rehab Potential: Fair I certify that the patient requires SNF services: Yes Overall status at discharge: patient is progressing back to baseline QUALITY VTE Deep Vein Thrombosis/Pulmonary Embolism Present on Admission: No
[2020-10-19] MEDS: BACLOFEN 10 MG TABLET PO SCH ×3 (12:13→21:08)
[2020-10-19] MEDS: ACETAMINOPHEN 325 MG TABLET PO SCH (20:46)
[2020-10-19] MEDS ORDERED: FLUTICASONE PROPIONATE SPRAY.NAS NS SCH (21:00)
[2020-10-19] MEDS: metFORMIN 500 MG TAB.XL.24H PO SCH (21:08)
[2020-10-19] MEDS: sitaGLIPtin 100 MG TABLET PO SCH (21:08)
[2020-10-20] MEDS: IPRATROPIUM/ALBUTEROL 3 ML AMPUL.NEB NEB SCH ×2 (01:58→07:50)
[2020-10-20] MEDS: 0.9 % SODIUM CHLORIDE 10 ML SYRINGE IV SCH ×2 (05:29→12:15)
[2020-10-20] MEDS: INSULIN LISPRO 1 UNIT/0.01 ML UNIT SQ SCH ×2 (07:48→12:15)
[2020-10-20] MEDS: PANTOPRAZOLE 40 MG TABLET PO SCH (08:00)
[2020-10-20] MEDS: AMIODARONE HCL 200 MG TABLET PO SCH (08:00)
[2020-10-20] MEDS: CLOPIDOGREL 75 MG TABLET PO SCH (08:01)
[2020-10-20] MEDS: SODIUM CHLORIDE 1 GM TABLET PO SCH (08:01)
[2020-10-20] MEDS: LOSARTAN 50 MG TABLET PO SCH (08:02)
[2020-10-20] MEDS: APIXABAN 5 MG TABLET PO SCH (08:02)
[2020-10-20] MEDS: ACETAMINOPHEN 325 MG TABLET PO SCH (08:02)
[2020-10-20] MEDS: DOCUSATE SODIUM 100 MG CAPSULE PO SCH (08:02)
[2020-10-20] MEDS: hydrALAZINE 25 MG TABLET PO SCH (08:03)
[2020-10-20] MEDS: FLUTICASONE/SALMETEROL 250/50 INHALER #14 INH SCH (08:05)
[2020-10-20] MEDS: cefTRIAXone 2 GM in DEXTROSE 5% IN WATER 50 ML IV SCH (08:05)
[2020-10-20] MEDS ORDERED: POLYETHYLENE GLYCOL 3350 17 GM PACKET PO SCH (09:00)
[2020-10-20] MEDS ORDERED: MONTELUKAST 10 MG TABLET PO SCH (09:00)
== END 2020-10-20 13:40 | DRG 690 ==
LOC: ED 03:12 → MEDSUR 15:24
PROVIDERS: ADMIT Internal Medicine; ATTEND Internal Medicine